=== PATIENT | female | born 2000 | race American Indian/Alaskan Native ===

== ENCOUNTER 2019-11-21 06:50 | Day surgery (SDC) | payer MEDICAID ==
[2019-11-18 11:29] LABS: CLARITY,URINE TURBID (Clear); COLOR,URINE YELLOW (Yellow); GLUCOSE, URINE NEGATIVE (Neg); KETONES,URINE NEGATIVE (Neg); LEUKOCYTE ESTERASE ,URINE NEGATIVE (Neg); NITRITES, URINE POSITIVE (Neg); OCCULT BLOOD,URINE NEGATIVE (Neg); PROTEIN,URINE NEGATIVE (Neg); UROBILINOGEN,URINE 0.2 E.U/dL (0.2-1.0)
[2019-11-18 11:30] LABS: PRE OP HEMOGLOBIN 13.5 g/dL (12.0-16.0)
[2019-11-18 11:31] LABS: BASOPHILS % (AUTO) 0.3 % (0-1); EOSINOPHILS # (AUTO) 0.1 X10'3 (0-0.9); EOSINOPHILS % (AUTO) 1.1 % (0-6); LYMPHOCYTES # (AUTO) 2.9 X10'3 (1.1-4.8); LYMPHOCYTES % (AUTO) 32.6 % (21-51); MEAN CORPUSCULAR HEMOGLOBIN 29.8 PG (27.0-31.0); MEAN CORPUSCULAR HGB CONC 34.1 g/dL (33.0-36.5); MEAN CORPUSCULAR VOLUME 87.4 FL (78-98); MEAN PLATELET VOLUME 6.8 FL (7.4-10.4); MONOCYTES # (AUTO) 0.5 X10'3 (0-0.9); MONOCYTES % (AUTO) 5.4 % (2-12); NEUTROPHILS # (AUTO) 5.4 X10'3 (1.8-7.7); NEUTROPHILS % (AUTO) 60.6 % (42-75); PRE OP HEMATOCRIT 39.7 % (35.0-45.0); PRE OP PLATELET COUNT 348 X10'3 (140-440); RED BLOOD COUNT 4.54 X10'6 (4.20-5.60); RED CELL DISTRIBUTION WIDTH 14.6 % (11.5-14.5)
[2019-11-18 11:33] LABS: UA COLLECTION TYPE CLN CATCH MIDSTREAM
[2019-11-18 11:34] LABS: MUCUS STRANDS FEW /LPF (Neg); SQUAMOUS EPITHELIAL CELL,UR MODERATE /LPF (FEW)
[2019-11-18 11:35] LABS: WBC,URINE 30-50 /HPF (0-4)
[2019-11-18 11:36] LABS: BACTERIA,URINE 3+ /HPF (Neg); RBC,URINE 0-2 /HPF (0-2)
[2019-11-18 11:46] LABS: ALBUMIN 3.3 G/DL (3.4-5.0); ALBUMIN/GLOBULIN RATIO 0.8 (1.1-1.5); ALKALINE PHOSPHATASE 131 IU/L (46-116); BLOOD UREA NITROGEN 9 MG/DL (7-18); BUN/CREATININE RATIO 11.4 (6.6-38.0); CALCIUM 8.8 MG/DL (8.5-10.1); CHLORIDE 105 MMOL/L (99-107); CREATININE 0.79 MG/DL (0.40-0.90); PRE OP ALT 31 U/L (30-65); PRE OP ANION GAP 10 (8-16); PRE OP AST 17 U/L (10-37); PRE OP BILIRUB, TOTAL 0.3 MG/DL (0.0-1.0); PRE OP GLUCOSE 82 MG/DL (70-104); PRE OP POTASSIUM 3.6 MMOL/L (3.4-5.1); PRE OP SODIUM 142 MMOL/L (135-145); TOTAL CARBON DIOXIDE 27.5 MMOL/L (24-32); TOTAL PROTEIN 7.5 G/DL (6.4-8.2); eGFR > 90 ML/MIN
[2019-11-18 11:50] LABS: HCG SERUM QL NEGATIVE
[2019-11-21] VITALS (7 sets, daily range): BP systolic 111–141; BP diastolic 70–92
[~2019-11-21] VITALS: Ht 162.6 cm; Wt 131.5 kg
[~2019-11-21 06:50] MED LIST: FLUO-1 PO; LEVO100T9 PO; ceFAZolin 1,000 MG/D5W 50ML IVPB Premixed bag IV ONE; ceFAZolin 2gm in dextrose, iso 50 ML IV ONE; diazepam 5mg tablet PO PRN; famotidine 20mg tablet PO ONE; ringers solution, lacted 1,000 ML IV SCH
[2019-11-21] MEDS ORDERED: ondansetron/PF 4mg/2ml inj IV PRN (07:35)
[2019-11-21] MEDS ORDERED: ringers solution, lacted 1,000 ML IV SCH (07:35)
[2019-11-21] MEDS ORDERED: proCHLORperazine 10 MG/2 ml inj IV PRN (07:35)
[2019-11-21] MEDS ORDERED: meperidine/PF 25mg/ml syringe IV PRN ×2 (07:35)
[2019-11-21] MEDS ORDERED: morphine 4 MG/ML inj SYRINge IV PRN (07:35)
[2019-11-21] MEDS ORDERED: morphine 2 MG/ML inj. syringe IV PRN (07:35)
[2019-11-21] MEDS ORDERED: fentaNYL/PF 50MCG/1 ML 2ML syringe ONE (10:00)
[2019-11-21] MEDS ORDERED: midazolam 2 mg/2 ml injection ONE ×2 (10:00→10:01)
[2019-11-21] MEDS ORDERED: dexamethasone sod phosphate 4mg/ml inj. ONE (10:01)
[2019-11-21] MEDS ORDERED: LIDOcaine 2% (20mg/ml) 5ml vial ONE (10:01)
[2019-11-21] MEDS ORDERED: ROPIVAcaine 0.5% (5mg/ml) 30ml vial ONE (10:01)
[2019-11-21] MEDS ORDERED: propofol inj 20 ML IV ONE (10:01)
[2019-11-21] MEDS ORDERED: sevoflurane 250ml liquid IH ONE (10:18)
[2019-11-21] MEDS ORDERED: ketorolac trometh. 30mg/ml inj. ONE ×2 (11:34→11:37)
[2019-11-21] MEDS ORDERED: ondansetron/PF 4mg/2ml inj ONE (11:34)
--- NOTE | 2019-11-21 12:03 | NUR ---
Received from OR via alba, accompanied by Anesthesiologist Trip and report given by Anesthesiolgist. Pt responding to questions. All VS stable, 20G right AC and LR at 100cc/hr. Left foot/ankle wrapped in dressing and jong splint with ROE wrap. Toes pink and good cap refill. Ice pack on.
[2019-11-21] MEDS: meperidine/PF 25mg/ml syringe IV PRN ×2 (12:13→12:22)
--- NOTE | 2019-11-21 13:13 | NUR ---
Pt discharged to vehicle by wheelchair without incident. IV DC'd and all belongings returned back to patient. She verbalized understanding of all DC instructions. She received a pair of crutches and knows to follow none weight bearing mobilization. She has pain meds already received at home from MD office. Toes remain pink and good cap refill.
== END 2019-11-21 13:13 | disposition home or self-care (01) ==
LOC: PAS 06:50
PROVIDERS: ATTEND Podiatrist Foot & Ankle Surgery
DX: S82.62XK Displaced fracture of lateral malleolus of left fibula, subsequent encounter for closed fracture with nonunion (principal); G89.18 Other acute postprocedural pain; F41.9 Anxiety disorder, unspecified; F32.9 Major depressive disorder, single episode, unspecified; E03.9 Hypothyroidism, unspecified; E66.01 Morbid (severe) obesity due to excess calories; Z68.42 Body mass index [BMI] 45.0-49.9, adult; Z11.59 Encounter for screening for other viral diseases; F17.210 Nicotine dependence, cigarettes, uncomplicated; Z72.89 Other problems related to lifestyle; Z79.899 Other long term (current) drug therapy; Z79.82 Long term (current) use of aspirin; X58.XXXD Exposure to other specified factors, subsequent encounter
CPT/HCPCS: 27792; 36415; 64445; 64447; 73600; 76000; 80053; 81001; 82948; 84703; 85025; 87077; 87088; 87186; A6223; C1713; J0690; J1100; J1885; J2001; J2175; J2250; J2405; J2704; J3010; J7120; U0003; A4215; A4618; A6449; A7000; J2795

== ENCOUNTER 2020-12-18 18:50 | Emergency (ER) | payer MEDICAID ==
[~2020-12-18] VITALS: Ht 162.6 cm; Wt 120.5 kg
[~2020-12-18 18:50] MED LIST changes: -ceFAZolin 1,000 MG/D5W 50ML IVPB Premixed bag IV ONE; -ceFAZolin 2gm in dextrose, iso 50 ML IV ONE; -diazepam 5mg tablet PO PRN; -famotidine 20mg tablet PO ONE; -ringers solution, lacted 1,000 ML IV SCH
[2020-12-18 19:52] LABS: BASOPHILS % (AUTO) 0.2 % (0-1); EOSINOPHILS # (AUTO) 0.1 X10'3 (0-0.9); EOSINOPHILS % (AUTO) 0.9 % (0-6); HEMOGLOBIN 12.9 g/dl (12.0-16.0); LYMPHOCYTES # (AUTO) 2.2 X10'3 (1.1-4.8); LYMPHOCYTES % (AUTO) 21.8 % (21-51); MEAN CORPUSCULAR HEMOGLOBIN 27.4 PG (27.0-31.0); MEAN PLATELET VOLUME 6.6 FL (7.4-10.4); MONOCYTES # (AUTO) 0.6 X10'3 (0-0.9); MONOCYTES % (AUTO) 6.2 % (2-12); NEUTROPHILS # (AUTO) 7.2 X10'3 (1.8-7.7); NEUTROPHILS % (AUTO) 70.9 % (42-75); PLATELET COUNT 384 X10'3 (140-440); WHITE BLOOD COUNT 10.2 X10'3 (4.5-11.0)
[2020-12-18 20:09] LABS: ALANINE AMINOTRANSFERASE 38 U/L (12-78); ALBUMIN 3.3 G/DL (3.4-5.0); ALBUMIN/GLOBULIN RATIO 0.8 (1.1-1.5); ALKALINE PHOSPHATASE 155 IU/L (46-116); ANION GAP 7 (8-16); ASPARTATE AMINO TRANSFERASE 19 U/L (10-37); BILIRUBIN,TOTAL 0.2 MG/DL (0.1-1.0); BLOOD UREA NITROGEN 12 MG/DL (7-18); CALCIUM 8.6 MG/DL (8.5-10.1); CHLORIDE 103 MMOL/L (99-107); GLUCOSE 197 MG/DL (70-104); LIPASE 55 U/L (73-393); POTASSIUM 3.8 MMOL/L (3.5-5.1); SODIUM 137 MMOL/L (135-145); TOTAL CARBON DIOXIDE 26.9 MMOL/L (24-32); TOTAL PROTEIN 7.6 G/DL (6.4-8.2); eGFR 90 ML/MIN
--- NOTE | 2020-12-18 20:30 | NUR ---
PT IS 20 YO FEMALE C/O CYST ON BUTTOCK OFF AND ON X2 TO 3 MONTHS, RECEIVED ANTIBIOTIC 2 WEEKS AGO FROM PMD, ALSO WAITING TO HEAR ABOUT REFERRAL FOR ULTRASOUND TO R/O OVARIAN CYST. VAGINAL DISCHARGE CLEAR AND WATERY X2 DAYS, LOWER ABD PAIN, SEXUALLY ACTIVE, NOT ON CONTROL
--- NOTE | 2020-12-18 21:47 | NUR ---
[facility] CONSULTANT AT BEDSIDE
[2020-12-18 22:13] VITALS: BP 141/95
[2020-12-18 22:23] LABS: URINE HCG NEGATIVE (NEG)
[2020-12-18 22:25] LABS: CLARITY,URINE CLEAR (Clear); COLOR,URINE YELLOW (Yellow); GLUCOSE, URINE 100 mg/dl (Neg); KETONES,URINE NEGATIVE (Neg); LEUKOCYTE ESTERASE ,URINE NEGATIVE (Neg); NITRITES, URINE NEGATIVE (Neg); OCCULT BLOOD,URINE NEGATIVE (Neg); PH,URINE 5.5 (4.8-8.0); PROTEIN,URINE NEGATIVE (Neg); UROBILINOGEN,URINE 0.2 E.U/dL (0.2-1.0)
[2020-12-18 22:30] LABS: UA COLLECTION TYPE CLN CATCH MIDSTREAM
== END 2020-12-18 22:40 | disposition home or self-care (01) ==
LOC: ER 18:51
DX: N83.201 Unspecified ovarian cyst, right side (principal); L02.31 Cutaneous abscess of buttock
CPT/HCPCS: 36415; 76830; 76856; 80053; 81003; 81025; 83690; 85025; 93976; 99285

== ENCOUNTER 2023-06-27 23:06 | Emergency (ER) | payer MEDICAID ==
[~2023-06-27] VITALS: Ht 162.6 cm; Wt 122.7 kg
[2023-06-27 23:27] VITALS: BP 137/91; PULSE 81; RESP 17; TEMP 98; O2SAT 98
[2023-06-27 23:51] LABS: BASOPHILS # (AUTO) 0.2 X10'3 (0-0.2); BASOPHILS % (AUTO) 1.7 % (0-1); EOSINOPHILS # (AUTO) 0.1 X10'3 (0-0.9); EOSINOPHILS % (AUTO) 1.2 % (0-6); HEMATOCRIT 38.9 % (35.0-45.0); HEMOGLOBIN 13.4 g/dl (12.0-16.0); LYMPHOCYTES # (AUTO) 2.2 X10'3 (1.1-4.8); LYMPHOCYTES % (AUTO) 23.4 % (21-51); MEAN CORPUSCULAR HEMOGLOBIN 30.7 PG (27.0-31.0); MEAN CORPUSCULAR HGB CONC 34.4 g/dL (33.0-36.5); MEAN CORPUSCULAR VOLUME 89.2 FL (78-98); MEAN PLATELET VOLUME 6.7 FL (7.4-10.4); MONOCYTES # (AUTO) 0.6 X10'3 (0-0.9); NEUTROPHILS # (AUTO) 6.3 X10'3 (1.8-7.7); NEUTROPHILS % (AUTO) 67.7 % (42-75); PLATELET COUNT 301 X10'3 (140-440); RED BLOOD COUNT 4.36 X10'6 (4.20-5.60); RED CELL DISTRIBUTION WIDTH 13.2 % (11.5-14.5); WHITE BLOOD COUNT 9.3 X10'3 (4.5-11.0)
[2023-06-28 00:04] LABS: ALANINE AMINOTRANSFERASE 19 U/L (12-78); ALBUMIN 3.2 G/DL (3.4-5.0); ALBUMIN/GLOBULIN RATIO 0.8 (1.1-1.5); ALKALINE PHOSPHATASE 117 IU/L (46-116); ANION GAP 8 (8-16); ASPARTATE AMINO TRANSFERASE 12 U/L (10-37); BILIRUBIN,TOTAL 0.2 MG/DL (0.1-1.0); BLOOD UREA NITROGEN 13 MG/DL (7-18); BUN/CREATININE RATIO 18.8 (10.0-20.0); CALCIUM 8.4 MG/DL (8.5-10.1); CHLORIDE 103 MMOL/L (99-107); CREATININE 0.69 MG/DL (0.40-0.90); GLUCOSE 161 MG/DL (70-104); POTASSIUM 3.9 MMOL/L (3.5-5.1); SODIUM 138 MMOL/L (135-145); TOTAL CARBON DIOXIDE 27.2 MMOL/L (24-32); TOTAL PROTEIN 7.2 G/DL (6.4-8.2); eCRCL 108 ML/MIN; eGFR > 90 ML/MIN
[2023-06-28 00:13] LABS: PRO BRAIN NATRIURETIC PEPTIDE 47 PG/ML (0-125)
== END 2023-06-28 05:54 | disposition left against medical advice (07) ==
LOC: ER 23:06
DX: R07.89 Other chest pain (principal); Z53.21 Procedure and treatment not carried out due to patient leaving prior to being seen by health care provider
CPT/HCPCS: 36415; 71045; 80053; 83880; 84484; 85007; 85025; 99281

== ENCOUNTER 2024-07-08 15:47 | Emergency (ER) | payer OTHER ==
[~2024-07-08] VITALS: Ht 162.6 cm; Wt 120.7 kg
[~2024-07-08 15:47] MED LIST changes: +LOPE2CAP PO; +ONDA-245 PO
[2024-07-08 16:44] LABS: STREP A SCREEN NEGATIVE (Neg)
[2024-07-08] MEDS ORDERED: ketorolac trometh 15mg/ml vial 15 MG/ML ML IM ONE (17:45)
[2024-07-08] MEDS: ketorolac trometh 30MG/ML vial 30 MG/ML VIAL IM ONE (18:08)
[2024-07-08 18:43] LABS: BILIRUBIN,URINE NEGATIVE (Neg); CLARITY,URINE CLEAR (Clear); COLOR,URINE YELLOW (Yellow); GLUCOSE, URINE 500 mg/dl (Neg); KETONES,URINE NEGATIVE (Neg); LEUKOCYTE ESTERASE ,URINE NEGATIVE (Neg); NITRITES, URINE NEGATIVE (Neg); OCCULT BLOOD,URINE LARGE (Neg); PROTEIN,URINE NEGATIVE (Neg); UROBILINOGEN,URINE 0.2 E.U/dL (0.2-1.0)
[2024-07-08 18:53] LABS: UA COLLECTION TYPE CLN CATCH MIDSTREAM
[2024-07-08 18:56] LABS: BACTERIA,URINE NONE SEEN /HPF (Neg); SQUAMOUS EPITHELIAL CELL,UR FEW /LPF (FEW); WBC,URINE NONE SEEN /HPF (0-4)
[2024-07-08 19:10] VITALS: BP 122/60; PULSE 78; RESP 18; TEMP 98.7; O2SAT 99
== END 2024-07-08 19:12 | disposition home or self-care (01) ==
LOC: ER 15:48
DX: B34.9 Viral infection, unspecified (principal); E11.9 Type 2 diabetes mellitus without complications; Z20.822 Contact with and (suspected) exposure to COVID-19
CPT/HCPCS: 36415; 81001; 87081; 87502; 87503; 87811; 87880; 96372; 99283; J1885

== ENCOUNTER 2025-01-12 07:01 | Emergency (ER) | payer OTHER ==
[~2025-01-12] VITALS: Ht 162.6 cm; Wt 100.0 kg
[2025-01-12 07:28] VITALS: TEMP 97.7
[2025-01-12 07:39] LABS: MEAN PLATELET VOLUME 6.7 FL (7.4-10.4); RED CELL DISTRIBUTION WIDTH 13.9 % (11.5-14.5)
[2025-01-12 07:50] LABS: CREATININE 0.91 MG/DL (0.40-0.90); TOTAL CARBON DIOXIDE 24.7 MMOL/L (24-32); eCRCL 81 ML/MIN; eGFR 75 ML/MIN
[2025-01-12] MEDS: normal saline 1000ML IV soln IVB ONE (08:47)
--- NOTE | 2025-01-12 08:47 | Physician Documentation ---
History of Present Illness Chief Complaint: Abdominal Pain w/vomiting Stated Complaint: PAIN Time Seen by MD: 08:30 OK to notify your PCP?: Yes Primary Medical Doctor: pretty ball Source: patient, RN/MD, EMS, RN notes reviewed, EMS notes reviewed, old records Mode of Arrival: EMS Exam Limitations: no limitations HPI This morbidly obese 24-year-old states that she has been having slightly poorly- controlled diabetes. Otherwise she has been doing well she does have a history of migraines. 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 It seemed like one of her migraines. However during the night she just seemed to get progressively worse. She left an hour early from work because she did not feel well and while in the car she ended up having multiple episodes of vomiting. She called her because she was feeling so sick that she could not go home. But it got to the point were she ended up calling 911. She states her headache was pounding severe. A bit worse in her normal headache. But now that she has a arrived in his being seen upon arrival in bed seven the patient states her headache is still pending but now it feels like a typical headache. She feels much better after vomiting. She has no sick contacts. She has been complaining of body aches and pains and some myalgias which is also new. She states her pain is mostly in the epigastric area but now she is complaining of some ovarian pain bilaterally. No dysuria or frequency. Last Menstrual Period: Dec 20, 2024 Medication Reconciliation Allergies: Coded Allergies: No Known Allergies (Unverified , 04/28/24) Scheduled Fluoxetine Hcl (Prozac), 1 TAB PO DAILY, (Reported) Levothyroxine Sodium (Levothyroxine Sodium), 1 TAB PO DAILY, (Reported) Loperamide Hcl (Loperamide), 2 CAP PO Q6H Ondansetron 8mg ODT (Ondansetron Odt), 1 TAB PO Q6H Past Medical History Past Medical History: Migraine, Hypertension, Diabetes, Hypothyroidism, Anxiety Past Surgical History: orthopedic surgeries Last Menstrual Period: Dec 20, 2024 Smoking Status: Current every day smoker Alcohol Use: None Drug Use: none Lives In: Home Review of Systems All Other Systems at this time: Reviewed and Negative Physical Exam Vital Signs: RN Vital Signs have been reviewed: Yes, Temperature: 97.7, Source: Oral, Heart Rate: 75, Respiratory Rate: 12, BP: 116/79, Pulse Oximetry: 98, Weight: 100.000 Oxygen Flow Rate: 0 Physical Exam General: The patient is well developed, well nourished, nontoxic appearing and is in mild acute distress. Morbidly obese Skin: Bailey, warm and dry with no rashes. HEENT: Head was normocephalic and atraumatic. Eyes - pupils equal, round, reactive to light and accommodation. Extraocular movements were intact. Conjunctivae were nonicteric. The mouth and oropharynx were clear with moist mucous membranes. There were no pharyngeal exudates or erythema. Neck: Supple and nontender. There was no jugular venous distention, lymphadenopathy, thyromegaly or masses. Chest: Clear to auscultation bilaterally without wheezes, rales or rhonchi. No accessory muscle use. No dullness to percussion. Heart: Rate regular and rhythmic. S1, S2. No murmurs. Palpation of the chest wall was normal. No rubs or thrills. Abdomen: Soft, nontender and nondistended. Positive bowel sounds. No guarding or rebound. No hepatosplenomegaly or palpable masses. Extremities: No cyanosis, clubbing or edema. The patient moves all extremities. Pulses were equal and symmetric. Neurologic: Motor sensory grossly intact Psychologic: The patient was oriented to person, place and time. The patient d emonstrated appropriate judgement and insight. Progress Progress Note Patient was seen and examined. Patient is given reassurance. Patient's laboratory work shows a slight leukocytosis of 12.7. Otherwise no left shift no anemia. Chemistry is also within normal limits slight low potassium at 3.4. Magnesium 1.9 kidney functions with a creatinine of 0.91. No signs of any electrolyte abnormalities. Patient was vomiting. Patient was given a prescription for Zofran hydrated and was discharged home with gastritis. Patient is otherwise in good health. She remained stable she was sleeping comfortably in his feeling much better at this time. Patient received a fluid bolus. Patient's COVID is pending at time of discharge it was not collected. Patient is was given a prescription discharged home. Results/Orders Reviewed/noted all lab results: Yes Results/Orders Orders - COBY GRANADOS MD Urinalysis, Cult If Indicated (01/12/25 07:13) Hcg, Ur Ql (01/12/25 07:13) Completed Orders - COBY GRANADOS MD Cbc/Diff (01/12/25 07:13) Lipase (01/12/25 07:13) CMP (01/12/25 07:13) Vital Signs 01/12/25 01/12/25 01/12/25 01/12/25 07:08 07:28 07:28 07:50 Temp 97.7 Pulse 83 69 75 Resp 13 22 13 12 B/P (MAP) 146/116 117/87 (97) 116/79 (91) Pulse Ox 98 100 98 O2 Flow Rate 0 Laboratory Tests Test 01/12/25 07:21 White Blood Count 12.7 H Red Blood Count 5.16 Hemoglobin 14.5 Hematocrit 43.9 Mean Corpuscular Volume 85.1 Mean Corpuscular Hemoglobin 28.2 Mean Corpuscular Hemoglobin Concent 33.2 Red Cell Distribution Width 13.9 Platelet Count 387 Mean Platelet Volume 6.7 L Neutrophils (%) (Auto) 66.5 Lymphocytes (%) (Auto) 29.1 Monocytes (%) (Auto) 3.2 Eosinophils (%) (Auto) 0.8 Basophils (%) (Auto) 0.4 Neutrophils # (Auto) 8.5 H Lymphocytes # (Auto) 3.7 Monocytes # (Auto) 0.4 Eosinophils # (Auto) 0.1 Basophils # (Auto) 0.0 CBC Comment Sodium Level 138 Potassium Level 3.4 L Chloride Level 102 Carbon Dioxide Level 24.7 Anion Gap 11 Blood Urea Nitrogen 10 Creatinine 0.91 H Estimated GFR/1.73 m2 75 BUN/Creatinine Ratio 11.0 Glucose Level 221 H Calcium Level 9.4 Total Bilirubin 0.3 Aspartate Amino Transf (AST/SGOT) 17 Alanine Aminotransferase (ALT/SGPT) 25 Alkaline Phosphatase 122 H Total Protein 8.2 Albumin 3.7 Globulin 4.5 H Albumin/Globulin Ratio 0.8 L Lipase 27 Chemistry Comments Re-Evaluation Re-Evaluation : Re-Evaluation: Improved Medical Decision Making Additional info obtained from: old records Differential Dx:Considerations: Include: Angina/AK, Aortic dissection, Ap pendicitis, Bowel obstruction, Cholangitis, Cholelithasis, Constipation, Diverticular disease, Esophagitis, Gastritis/PUD, GI hemorrhage, Hernia, Hepatitis, Inflammatory BD, Ischemic bowel, Pancreatitis, Other Departure Disposition: 01 HOME / SELF CARE / HOMELESS Impression: Primary Impression: Acute gastritis Qualified Codes: K29.00 - Acute gastritis without bleeding Condition: Stable Discharge Instructions: Gastritis, Adult Referrals: NO PRIMARY CARE PROVIDER (PCP) Prescriptions ONDANSETRON ODT 4mg tablet (ONDANSETRON ODT) 4 Mg Tab.rapdis 1 TAB PO Q6H PRN PRN for nausea/vomiting for 4 Days, #16 TAB 0 Refills Prov: COBY GRANADOS MD 01/12/25 Education Educated: Patient Educated regarding: diagnosis, need for follow up, other Signature Scribe Signature: . Attestation: The note accurately reflects work and decisions made by me.Coby Granados MD 01/12/25 08:44 COBY GRANADOS MD Jan 12, 2025 08:47
[2025-01-12] MEDS: normal saline 1000ml 1,000 ML IV ONE (09:45)
[2025-01-12] MEDS ORDERED: ONDA-243 PO (11:12)
[2025-01-12 11:25] LABS: LEUKOCYTE ESTERASE ,URINE NEGATIVE (Neg); NITRITES, URINE NEGATIVE (Neg); OCCULT BLOOD,URINE NEGATIVE (Neg)
[2025-01-12 11:27] LABS: URINE HCG NEGATIVE (NEG)
[2025-01-12 11:32] LABS: UA COLLECTION TYPE CLN CATCH MIDSTREAM
[2025-01-12 11:33] LABS: SQUAMOUS EPITHELIAL CELL,UR MODERATE /LPF (FEW)
[2025-01-12 11:34] LABS: MUCUS STRANDS FEW /LPF (Neg); RENAL CELLS, URINE FEW /HPF
[2025-01-12 11:37] VITALS: BP 101/68; PULSE 69; RESP 22; O2SAT 98
== END 2025-01-12 11:43 | disposition home or self-care (01) ==
LOC: ER 07:02
DX: K29.00 Acute gastritis without bleeding (principal); E03.9 Hypothyroidism, unspecified; E11.65 Type 2 diabetes mellitus with hyperglycemia; F17.200 Nicotine dependence, unspecified, uncomplicated; G43.909 Migraine, unspecified, not intractable, without status migrainosus; I10 Essential (primary) hypertension; F41.9 Anxiety disorder, unspecified; Z20.822 Contact with and (suspected) exposure to COVID-19; Z79.899 Other long term (current) drug therapy
CPT/HCPCS: 36415; 80053; 81001; 81025; 83690; 83735; 85025; 87088; 87811; 96360; 96361; 99285; J7030